=== PATIENT | male | born 1995 | race African-American/Black ===

== ENCOUNTER 2017-07-28 00:48 | Inpatient (IN) | payer SELFPAY ==
[~2017-07-28] VITALS: Ht 167.6 cm; Wt 60.3 kg
[2017-07-28] MEDS ORDERED: SODIUM CHLORIDE 0.9% 1,000 ML IV ONE (03:13)
[2017-07-28] MEDS ORDERED: SODIUM CHLORIDE 0.9% 1000ML BAG (SEPSIS BOLUS) IV ONE (03:30)
[2017-07-28 03:42] LABS: BASOPHILS % 0.2 % (0.0-2.0); HEMATOCRIT. 51.2 % (42.0-52.0); HEMOGLOBIN. 17.4 g/dL (14.0-18.0); MEAN CORPUSCULAR HEMOGLOBIN 33.1 pg (28.0-32.0); MEAN CORPUSCULAR VOLUME 97.2 fL (80.0-94.0); MEAN PLATELET VOLUME 10.1 fl (7.4-10.4); MONOCYTES % 11.4 % (2.0-8.0); NEUTROPHILS % 80.4 % (40.0-76.0); PLATELET 114 x1000/uL (130-400); RED BLOOD CELL COUNT 5.26 mill/uL (4.7-6.1); RED CELL DISTRIBUTION WIDTH 14.3 % (11.6-14.6)
[2017-07-28 03:47] LABS: CHLORIDE 100 mEq/L (98-107)
[2017-07-28 03:49] LABS: INR 1.1
[2017-07-28 03:56] LABS: ETHANOL BLOOD < 10 mg/dL
[2017-07-28 04:39] LABS: CLARITY URINE CLEAR (CLEAR); COLOR URINE YELLOW (YELLOW); KETONES URINE TRACE (NEGATIVE); LEUKOCYTE ESTERASE URINE 1+ (NEGATIVE); NITRITE URINE NEGATIVE (NEGATIVE); OCCULT BLOOD URINE 2+ (NEGATIVE); PH URINE 6.5 (4.5-8.0); PROTEIN URINE TRACE (NEGATIVE); SPECIFIC GRAVITY URINE 1.015 (1.005-1.030)
[2017-07-28 04:51] LABS: *AMPHETAMINES SCREEN URINE NEGATIVE (NEGATIVE); *BARBITURATES SCREEN URINE NEGATIVE (NEGATIVE); *BENZODIAZEPINES SCREEN URINE NEGATIVE (NEGATIVE); *COCAINE SCREEN URINE PRESUMTIVE POSITIVE (NEGATIVE); CANNABINOID URINE SCREEN PRESUMTIVE POSITIVE (NEGATIVE); METHADONE URINE SCREEN NEGATIVE (NEGATIVE); OPIATES URINE SCREEN NEGATIVE (NEGATIVE); PHENCYCLIDINE URINE SCREEN NEGATIVE (NEGATIVE)
[2017-07-28] MEDS ORDERED: CEFTRIAXONE 1 G PREMIX 50 ML IV ONE (05:15)
[2017-07-28] MEDS ORDERED: LEVOFLOXACIN 500MG PREMIX 100 ML IV ONE (05:15)
[2017-07-28] MEDS ORDERED: SODIUM CHLORIDE 0.9% 1,000 ML IV SCH (05:15)
[2017-07-28] MEDS ORDERED: AZITHROMYCIN 500 MG in DEXT 5% WATER 250 ML IV SCH ×2 (05:15→12:30)
[2017-07-28 13:16] LABS: HEMATOCRIT. 47.3 % (42.0-52.0); HEMOGLOBIN. 15.8 g/dL (14.0-18.0); MEAN CORPUSCULAR HEMOGLOBIN 32.4 pg (28.0-32.0); MEAN CORPUSCULAR VOLUME 96.9 fL (80.0-94.0); PLATELET 118 x1000/uL (130-400); RED BLOOD CELL COUNT 4.88 mill/uL (4.7-6.1); RED CELL DISTRIBUTION WIDTH 14.2 % (11.6-14.6)
[2017-07-28 13:22] LABS: CHLORIDE 102 mEq/L (98-107)
[2017-07-28 13:25] LABS: HEPATITIS B SURFACE ANTIGEN NEGATIVE
[2017-07-28 13:28] LABS: AMMONIA 34 uMol/L (<32)
[2017-07-28 13:39] LABS: PLATELET ESTIMATE SLIGHTLY DECREASED
[2017-07-28 13:53] LABS: HEPATITIS B CORE AB IGM NEGATIVE
[2017-07-28 13:55] LABS: HEPATITIS A AB IGM NEGATIVE (NEGATIVE)
[2017-07-28 13:57] LABS: CREATINE KINASE 12751 IU/L (39-308)
[2017-07-28] MEDS ORDERED: IPRATROPIUM BROMIDE (0.02%) 0.5MG/2.5ML NEB HHN PRN (17:00)
[2017-07-28] MEDS ORDERED: ONDANSETRON HCL 4MG/2ML VIAL IV PRN (17:00)
[2017-07-28 21:00] VITALS: BP 130/84
[2017-07-28 22:00] VITALS: BP 120/70
[2017-07-28] MEDS: DEXT 5%/0.9% NACL 1,000 ML IV SCH (23:17)
[2017-07-29] VITALS (7 sets, daily range): BP systolic 103–126; BP diastolic 63–78
[2017-07-29] MEDS: METRONIDAZOLE 500 MG PREMIX 100 ML IV SCH ×3 (00:15→17:02)
[2017-07-29] MEDS ORDERED: ACETAMINOPHEN 325MG TABLET PO PRN (04:30)
[2017-07-29] MEDS ORDERED: HYDROCODONE/ACETAMINOPHEN 5/325MG TABLET PO PRN (04:30)
[2017-07-29] MEDS: TRAMADOL 50MG TABLET PO PRN ×2 (04:51→20:45)
[2017-07-29 07:05] LABS: BASOPHILS % 0.3 % (0.0-2.0); EOSINOPHILS % 0.1 % (0.0-5.0); HEMATOCRIT. 42.6 % (42.0-52.0); HEMOGLOBIN. 14.6 g/dL (14.0-18.0); LYMPHOCYTES % 10.9 % (20.0-50.0); MEAN CORPUSCULAR VOLUME 96.3 fL (80.0-94.0); MEAN PLATELET VOLUME 9.7 fl (7.4-10.4); MONOCYTES % 11.1 % (2.0-8.0); NEUTROPHILS % 77.6 % (40.0-76.0); PLATELET 109 x1000/uL (130-400); RED BLOOD CELL COUNT 4.43 mill/uL (4.7-6.1); RED CELL DISTRIBUTION WIDTH 13.5 % (11.6-14.6)
[2017-07-29 07:32] LABS: CHLORIDE 101 mEq/L (98-107)
[2017-07-29 07:41] LABS: PHOSPHORUS 2.8 mg/dL (2.5-4.9)
[2017-07-29] MEDS ORDERED: LEVOFLOXACIN 500MG PREMIX 100 ML IV SCH (09:00)
[2017-07-29] MEDS: PANTOPRAZOLE SODIUM 40 MG/VIAL IV SCH (09:54)
[2017-07-29] MEDS: DEXT 5%/0.9% NACL 1,000 ML IV SCH (11:30)
[2017-07-30] VITALS: BP 113/64
[2017-07-30] MEDS ORDERED: METRONIDAZOLE 500 MG PREMIX 100 ML IV SCH (02:00)
[2017-07-30] MEDS: DEXT 5%/0.9% NACL 1,000 ML IV SCH (02:04)
[2017-07-30 04:00] VITALS: BP 226/63
[2017-07-30] MEDS: TRAMADOL 50MG TABLET PO PRN (04:24)
[2017-07-30 06:04] LABS: BASOPHILS % 0.2 % (0.0-2.0); EOSINOPHILS % 0.3 % (0.0-5.0); HEMATOCRIT. 37.8 % (42.0-52.0); HEMOGLOBIN. 12.9 g/dL (14.0-18.0); LYMPHOCYTES % 17.3 % (20.0-50.0); MEAN CORPUSCULAR HEMOGLOBIN 33.2 pg (28.0-32.0); MEAN CORPUSCULAR VOLUME 97.3 fL (80.0-94.0); MEAN PLATELET VOLUME 10.1 fl (7.4-10.4); MONOCYTES % 9.9 % (2.0-8.0); NEUTROPHILS % 72.3 % (40.0-76.0); PLATELET 105 x1000/uL (130-400); RED BLOOD CELL COUNT 3.89 mill/uL (4.7-6.1); RED CELL DISTRIBUTION WIDTH 13.3 % (11.6-14.6)
[2017-07-30 06:26] LABS: CHLORIDE 102 mEq/L (98-107)
[2017-07-30 06:57] LABS: CREATINE KINASE 9106 IU/L (39-308)
[2017-07-30 08:00] VITALS: BP 97/59
[2017-07-30] MEDS: PANTOPRAZOLE SODIUM 40 MG/VIAL IV SCH (08:51)
== END 2017-07-30 09:40 | disposition left against medical advice (07) | DRG 40 ==
LOC: ER 00:48 → EDBD 05:20 → 6EST 05:20 → EDBEDREQ 05:21 → EDBEDREQTM 07:22 → EDBEDREQSVC 07:22 → SUPCPDRO 10:31 → CANRESERV 15:51 → ENRESERV 15:51 → SUPCPDRO 22:13
PROVIDERS: ADMIT Specialist; ATTEND Specialist
DX: S24.109A Unspecified injury at unspecified level of thoracic spinal cord, initial encounter (principal); J69.0 Pneumonitis due to inhalation of food and vomit; G92 Toxic encephalopathy; E87.2 Acidosis; D69.6 Thrombocytopenia, unspecified; F41.9 Anxiety disorder, unspecified; Z53.21 Procedure and treatment not carried out due to patient leaving prior to being seen by health care provider; F32.9 Major depressive disorder, single episode, unspecified; F17.210 Nicotine dependence, cigarettes, uncomplicated; R74.0 Nonspecific elevation of levels of transaminase and lactic acid dehydrogenase [LDH]; F19.10 Other psychoactive substance abuse, uncomplicated; X58.XXXA Exposure to other specified factors, initial encounter; Y93.89 Activity, other specified; Y92.89 Other specified places as the place of occurrence of the external cause; Y99.8 Other external cause status
CPT/HCPCS: 36415; 70450; 71045; 74176; 80048; 80053; 80076; 80305; 80307; 80329; 81001; 82140; 82550; 83605; 83735; 84100; 84443; 85007; 85025; 85027; 85610; 86705; 86709; 86803; 87040; 87077; 87086; 87340; 93005; 96361; 96365; 96366; 96368; 99285; C9113; G0482; J0456; J0696; J1956; J3490; J7030; J7042; J7060